=== PATIENT | female | born 1945 | race Caucasian/White ===

== ENCOUNTER 2019-06-26 14:46 | Emergency (ER) | payer OTHER, SELFPAY ==
[2019-06-26] VITALS (9 sets, daily range): BP systolic 142–198; BP diastolic 90–122; PULSE 66–98; RESP 18–20; TEMP 36.5–36.7; O2SAT 20–100
--- NOTE | ~2019-06-26 | XR_ITS ---
EXAMINATION: XR wrist RT 2V EXAM DATE: 06/26/2019 16:40 INDICATION: Status post reduction. TECHNIQUE: Right wrist frontal and lateral projections. Comparison is made to prior examination from 06/26/2019. FINDINGS: Acute comminuted right distal radial metaphyseal fracture into joints with reduction of th e posterior angulation and displacement. The other findings including acute ulnar styloid avulsion ar e poorly visualized through the cast which has been applied. Advanced first carpometacarpal joint ost eoarthritis. IMPRESSION: Status post casting, reduction acute right radial distal metaphyseal intra-articular fra cture. Ulnar styloid fracture. Reviewed, dictated and finalized at location G. IMPRESSION: Status post casting, reduction acute right radial distal metaphyse al intra-articular fracture. Ulnar styloid fracture.
--- NOTE | ~2019-06-26 | XR_ITS ---
EXAMINATION: XR elbow RT 2V INDICATION: Right elbow pain TECHNIQUE: Two views of the right elbow were obtained. COMPARISON: None available FINDINGS: There is no fracture, dislocation, or subluxation. The bones, soft tissues, and joint space s are normal. IMPRESSION: 1. No acute osseous abnormality. Reviewed, dictated and finalized at location A.
--- NOTE | ~2019-06-26 | XR_ITS ---
EXAMINATION: XR wrist RT 2V INDICATION: Right wrist pain, initial encounter TECHNIQUE: Two views of the right wrist are obtained. COMPARISON: 04/17/2019 FINDINGS: There is an acute, traumatic, or intra-articular fracture of the distal radius. There are 3 0 degrees of dorsal relation at the fracture site. An ulnar styloid avulsion is noted. Soft tissue sw elling surrounds the fractures. The trapezium appears to be absent. IMPRESSION: 1. Comminuted intra-articular fracture of the distal radius with dorsal attenuation. 2. Ulnar styloid avulsion. Reviewed, dictated and finalized at location A. IMPRESSION: 1. Comminuted intra-articular fracture of the distal radius with dorsal attenua tion. 2. Ulnar styloid avulsion.
--- NOTE | 2019-06-26 14:54 | ED.GENADULT ---
HPI - General Adult General Chief complaint: Extremity Injury, Upper Stated complaint: R ARM INJURY Time Seen by Provider: 06/26/19 14:53 History of Present Illness HPI narrative: Patient is a 73 y/o female complaining of right wrist pain after a fall that occurred half an hour ago. She states that she was walking in a park and tripped. She describes her pain as sharp and rates it as 10/10. Movement exacerbates her pain. Her pain radiates to her right elbow. She has some mild right upper back pain. She denies hitting her head or having LOC. She denies any neck pain. Related Data Home Medications Medication Instructions Recorded Confirmed calcium carbonate 500 mg calcium 500 mg PO DAILY 02/12/19 (1,250 mg) chewable tablet diclofenac sodium 1 % topical gel 2 gm TOPICAL QID 02/12/19 naproxen sodium 220 mg capsule 220 mg PO Q12H 02/12/19 tramadol 50 mg tablet 50 mg PO Q6H PRN 02/12/19 esomeprazole magnesium 20 mg 20 mg PO DAILY 04/17/19 04/17/19 capsule,delayed release naproxen sodium 220 mg tablet 220 mg PO BID PRN 04/17/19 04/17/19 Allergies Allergy/AdvReac Type Severity Reaction Status Date / Time adhesive tape Allergy Severe BLISTERS Verified 04/17/19 09:42 Penicillins Allergy Mild rash Verified 04/17/19 09:42 Review of Systems Constitutional: Constitutional: Denies chills, Denies fever(s), Denies headache(s) and Denies weakness Eyes: Eyes: Denies blurry vision ENT: Denies headache(s) and Denies neck pain Cardiovascular: Cardiovascular: Denies chest pain and Denies dyspnea Respiratory: Respiratory: Denies cough and Denies dyspnea Gastrointestinal: Gastrointestinal: Denies abdominal pain, Denies diarrhea, Denies nausea and Denies vomiting Genitourinary: Genitourinary: Denies hematuria and Denies dysuria Musculoskeletal: Musculoskeletal: Reports back pain, Reports arthralgias (right wrist pain) and Denies neck pain Neurologic: Denies headache(s) and Denies weakness PMFSH Past Medical History Medical History Osteoporosis Surgical History Surgical History History of hysterectomy 2000 History of knee replacement Left 2014- Dr. Parkinson History of knee surgery 2016- Dr. Parkinson History of thumb surgery Left 2006- Right 2007- History of tonsillectomy 1972 Family History Family History Mother Family history of diabetes mellitus in first degree relative Diabetes mellitus Hypertension Father Hypertension Sibling Family history of malignant neoplasm of brain Other Cerebrovascular accident Family history of malignant neoplasm Social History Social History Smoking status: Never smoker Second hand tobacco smoke exposure: No Alcohol intake: never Additional living arrangements comments: Exam Const: General: no acute distress and well developed Orientation/consciousness: oriented to person, oriented to place, oriented to time and patient oriented x3 HENMT: Head: normocephalic Ears: external ears normal General nose exam: Normal external nose present Eyes: General: appearance normal, both eyes and all related structures Conjunctivae: conjunctivae normal Neck: Neck: normal visual inspection and full ROM Chest: Chest palpation & inspection: normal inspection of the chest and no tenderness Resp: Effort & Inspection: normal respiratory effort Auscultation: clear to auscultation bilaterally Cardio: Rate: regular rate Rhythm: regular rhythm GI: GI Palp: No abdominal tenderness and Yes Soft to palpation Skin: General skin exam: normal color and turgor normal Neuro: General: oriented to person, oriented to place, oriented to time and patient oriented x3 Cognition (Neuro): normal cognition Extrem: General: normal to inspection, full ROM
[2019-06-26] MEDS: MORPHINE SULFATE 4 MG/ML INJ (15:07)
[2019-06-26] MEDS: PROPOFOL IV EMULSION 200 MG/20 ML VIAL (16:15)
[2019-06-26] MEDS: SODIUM CHLORIDE 0.9% IV 500 ML 999 ML (16:25)
[2019-06-26 16:41] LABS: Basophils Absolute Auto 0.1 K/mm3 (0.0-0.1); Basophils Percent Auto 0.6 % (0.2-1.2); Eosinophils Absolute Auto 0.4 K/mm3 (0-0.3); Eosinophils Percent Auto 5.1 % (0-4.4); Hematocrit 42.6 % (37.0-47.0); Hemoglobin 13.2 g/dL (12.0-15.0); Immature Granulocyte Absolute 0.02 K/mm3 (0.00-0.031); Immature Granulocyte Percent A 0.2 % (0-0.5); Lymphocytes Absolute Auto 2.64 K/mm3 (0.9-3.2); Lymphocytes Percent Auto 32.3 % (18.3-44.2); Mean Corpuscular Hemoglobin 28.6 pg (26-34); Mean Corpuscular Volume 92.4 fl (80-100); Mean Platelet Volume 10.6 fl (7.4-10.4); Monocytes Absolute Auto 0.6 K/mm3 (0.1-0.6); Monocytes Percent Auto 6.8 % (2.6-8.5); Neutrophils Absolute Auto 4.5 K/mm3 (1.3-6.7); Platelet Count Result 352 k/mm3 (150-375); Red Blood Count 4.61 M/mm3 (4.2-5.4); Red Cell Distribution Width 13.3 % (11.5-14.5); White Blood Count 8.2 K/mm3 (4.5-10.0)
[2019-06-26] MEDS: hydroCHLOROthiazide 25 MG TABLET PO (16:45)
[2019-06-26] MEDS: lisinopriL 20 MG TABLET PO (16:45)
[2019-06-26 16:51] LABS: Blood Urea Nitrogen 31 mg/dL (7-17); Calcium 9.3 mg/dL (8.4-10.2); Carbon Dioxide 29 mmol/L (22-30); Chloride 101 mmol/L (98-107); Estimated CRCL calculation 59 ml/min; Estimated Glomerular Filt Rate > 60; Glucose 95 mg/dL (65-105); Sodium 139 mmol/L (137-145)
[2019-06-26] MEDS: AMLODIPINE BESYLATE 5 MG TABLET 10 MG PO (17:25)
== END 2019-06-26 17:48 | disposition home or self-care (01) ==
PROVIDERS: Emergency Provider Emergency Medicine; PCP Family Medicine
DX: S52.571A Other intraarticular fracture of lower end of right radius, initial encounter for closed fracture (principal); S52.611A Displaced fracture of right ulna styloid process, initial encounter for closed fracture; M81.0 Age-related osteoporosis without current pathological fracture; Z96.652 Presence of left artificial knee joint; W01.0XXA Fall on same level from slipping, tripping and stumbling without subsequent striking against object, initial encounter
CPT/HCPCS: 25605; 36415; 73070; 73100; 80048; 85025; 96374; 99285; A4565; A9270; J2270; J2704; J7040

== ENCOUNTER 2019-07-06 00:25 | Day surgery (SDC) | payer OTHER, SELFPAY ==
[2019-07-04 10:55] VITALS: BMI 33.5
--- NOTE | 2019-07-05 16:33 | P.PNAN_ITS ---
Anes - Eval Pre Procedure Procedure: Operation Date: 07/06/19 07:30 Proposed Procedures p Open Reduction Internal Fixation Right Distal Radius - Luther Parkinson MD Date/Time: 07/05/19 16:33 Pre Op Diagnosis: Right Distal Radius Fracture Patient Data Age: 73 Gender: F Height: 5 ft 4 in Weight: 88.45 kg Allergies Allergy/AdvReac Type Severity Reaction Status Date / Time adhesive tape Allergy Severe BLISTERS Verified 07/04/19 10:59 Penicillins Allergy Mild Rash Verified 07/04/19 10:59 Home Medications Medication Instructions Recorded Confirmed Type calcium carbonate 500 mg calcium 500 mg PO DAILY 02/12/19 07/04/19 History (1,250 mg) chewable tablet diclofenac sodium 1 % topical gel 2 gm TOPICAL QID 02/12/19 07/04/19 History tramadol 50 mg tablet 50 mg PO Q6H PRN 02/12/19 07/04/19 History esomeprazole magnesium 20 mg 20 mg PO DAILY 04/17/19 07/04/19 History capsule,delayed release naproxen sodium 220 mg tablet 220 mg PO BID PRN 04/17/19 07/04/19 History hydrocodone-acetaminophen [[place]] 1 tablet PO Q6H PRN #15 tablet 06/26/19 07/04/19 Rx lisinopril-hydrochlorothiazide 1 tablet PO DAILY #30 tablet 06/26/19 07/04/19 Rx [Zestoretic] Patient hx anesthesia problems: none Family hx anesthesia problems: none PMFSH Past Medical History Medical History (Updated 07/05/19 @ 16:34 by Dave Haddad CRNA) Arthritis of hand, right BMI 32.0-32.9,adult Diverticulitis Fracture of right distal radius H/O: HTN (hypertension) Osteoporosis Radius and ulna distal fracture Surgical History Surgical History (Updated 07/05/19 @ 16:34 by Dave Haddad CRNA) History of appendectomy History of hysterectomy 1999 History of knee replacement Left 2013- Dr. Parkinson History of knee surgery 2016- Dr. Parkinson History of thumb surgery [facility] arthroplasties Left 2006- Right 2007- History of tonsillectomy 1972 Social History Social History Smoking status: Never smoker Second hand tobacco smoke exposure: No Alcohol intake: never Additional living arrangements comments: Exam Day of Procedure 07/05/19 16:33
[2019-07-06] VITALS (9 sets, daily range): BP systolic 121–151; BP diastolic 54–80; PULSE 63–80; RESP 12–20; TEMP 36.1–36.4; O2SAT 91–100
--- NOTE | ~2019-07-06 | XR_ITS ---
XR surgery orthopedic 07/06/2019 08:48 Indication: Intraoperative fixation of right radial fracture Procedure: 2 fluoroscopic images of the right wrist. 26 seconds of fluoroscopy. Comparison: 07/03/2019 Findings: There is a side plate and screws transfixing comminuted distal radial fracture which is in near-anatomic alignment post reduction. There is an ulnar styloid fracture. There appears to be surgi brenden absence of the trapezium. Impression: 1: Near-anatomic alignment of comminuted distal radial fracture status post intraoperative fixation w ith sideplate and screws. 2: Ulnar styloid avulsion fracture. Reviewed, dictated and finalized at location A. Impression: 1: Near-anatomic alignment of comminuted distal radial fracture status post int raoperative fixation with sideplate and screws. 2: Ulnar styloid avulsion fracture.
[2019-07-06] MEDS: LACTATED RINGERS 1,000 ML 30 ML IV CONT ×2 (06:25→08:58)
--- NOTE | 2019-07-06 06:39 | ECG_ITS ---
Measurements Intervals [place] Rate: 66 P: 3 OK: 210 QRS: -18 QRSD: 88 T: -2 QT: 402 QTc: 423 Interpretive Statements SINUS RHYTHM WITH FIRST DEGREE AV BLOCK VOLTAGE CRITERIA FOR LVH BORDERLINE T WAVE ABNORMALITY- INFERIOR LEADS BASELINE ARTIFACT- I, II, III, AVR, AVL, AVF, V1-V6 ABNORMAL ECG Electronically Signed On 07-06-2019 7:15:50 CDT by Tim Astorga D.O.
--- NOTE | 2019-07-06 06:58 | WPDANESEPPF ---
Anes - Initial Pre Proc Eval Procedure: Operation Date: 07/06/19 07:30 Proposed Procedures p Open Reduction Internal Fixation Right Distal Radius - Luther Parkinson MD Date/Time: 07/06/19 06:58 Surgeon: Luther Parkinson MD Pre Op Diagnosis: Right Distal Radius Fracture Patient Data Age: 73 Gender: F Height: 1.63 m Weight: 88.25 kg Last Vital Signs Temp 36.4 C 07/06/19 06:01 Pulse 80 07/06/19 06:01 Resp 20 07/06/19 06:01 BP 141/80 H 07/06/19 06:01 Pulse Ox 98 07/06/19 06:01 Allergies Allergy/AdvReac Type Severity Reaction Status Date / Time adhesive tape Allergy Severe BLISTERS Verified 07/06/19 06:13 Penicillins Allergy Severe Hives Verified 07/06/19 06:13 Home Medications Medication Instructions Recorded Confirmed Type calcium carbonate 500 mg calcium 500 mg PO DAILY 02/12/19 07/06/19 History (1,250 mg) chewable tablet diclofenac sodium 1 % topical gel 2 gm TOPICAL QID 02/12/19 07/06/19 History tramadol 50 mg tablet 50 mg PO Q6H PRN 02/12/19 07/06/19 History esomeprazole magnesium 20 mg 20 mg PO DAILY 04/17/19 07/06/19 History capsule,delayed release naproxen sodium 220 mg tablet 220 mg PO BID PRN 04/17/19 07/06/19 History hydrocodone-acetaminophen [[place]] 1 tablet PO Q6H PRN #15 tablet 06/26/19 07/06/19 Rx lisinopril-hydrochlorothiazide 1 tablet PO DAILY #30 tablet 06/26/19 07/06/19 Rx [Zestoretic] Patient hx anesthesia problems: none Family hx anesthesia problems: none PMFSH Past Medical History Medical History (Updated 07/05/19 @ 16:34 by Dave Haddad CRNA) Arthritis of hand, right BMI 32.0-32.9,adult Diverticulitis Fracture of right distal radius H/O: HTN (hypertension) Osteoporosis Radius and ulna distal fracture Surgical History Surgical History (Updated 07/05/19 @ 16:34 by Dave Haddad CRNA) History of appendectomy History of hysterectomy 2000 History of knee replacement Left 2013- Dr. Parkinson History of knee surgery 2016- Dr. Parkinson History of thumb surgery [facility] arthroplasties Left 2006- Right 2007- History of tonsillectomy 1972 Social History Social History Smoking status: Never smoker Second hand tobacco smoke exposure: No Alcohol intake: never Additional living arrangements comments: Anes - Eval Final PreProcedure Day of Procedure 07/06/19 06:58 Patient weight: obese Heart: regular rate and rhythm Lungs: clear to auscultation and normal air movement Airway: Mallampati scale class II Neurological: alert and oriented Last oral intake: >/= 8 hours ASA classification: III Emergent: no Anesthetic plan: proceed Anesthesia type and monitoring: general LMA Informed Consent: The patient's anesthetic plan and its attendant risks and benefits were discussed with the patient/family/POA. Questions were solicited and answers provided to the satisfaction of the patient/family/POA.
[2019-07-06] MEDS: CLINDAMYCIN 900 MG/NS 50 ML 900 MG/50 ML PIGGYBACK 50 MG IVPB (07:25)
[2019-07-06] MEDS: BUPIVACAINE/EPINEPHRINE 0.25% 50 ML VIAL 10 ML INFILTRATE (07:53)
[2019-07-06] MEDS: ceFAZolin SODIUM 1 GM VIAL IV PUSH (08:30)
[2019-07-06] MEDS: ONDANSETRON INJ 4 MG/2 ML VIAL IV PUSH (09:10)
--- NOTE | 2019-07-06 09:19 | SUR.PHASEI ---
0915 DR EDEN PERFORMING NERVE BLOCK- SEE ANESTHESIA NOTES. 0919 NERVE BLOCK COMPLETED.
--- NOTE | 2019-07-06 09:22 | PM.PROC ---
Procedure Note - Detailed Date of procedure: 07/06/19 Pre-op diagnosis: Right Distal Radius Fracture Post-op diagnosis: same Procedure performed: ORIF right distal radius fracture Description of procedure: The patient was identified and the proper side identified. She was taken back to the operating room, transferred to the or table positioning supine taking care to pad her torso and extremities. After general anesthetic induction and intubation, a nonsterile tourniquet was placed high on the right arm which was prepped and draped in the usual sterile fashion. The extremity was exsanguinated and tourniquet inflated to 250 mmHg remaining up for approximately 62 minutes. A volar longitudinal incision was made along the FCR tendon distally incorporating a portion of her prior distal forearm wrist incision. The subcutaneous tissue was sharply dissected protecting neurovascular structures. The FCR tendon was released from its sheath and retracted ulnarly. This allowed for the deep fascia of the forearm to be divided longitudinally in line with the incision. Care was taken to protect the volar compartment structures as well as the radial nerve and radial vascular structures. The pronator quadratus was elevated off of the distal radius allowing for inspection of the fracture site. The fracture fragments were disimpacted and able to be realigned virtually anatomically with fluoroscopic assistance. They were secured in this position with a right, wide, long plate from the DVR set. The plate was applied with fluoroscopic visualization to avoid penetration of the joint and to ensure optimal hardware placement. Once the plate was secure the overall construct was assessed fluoroscopically on the AP and lateral views. The virtually anatomic reduction was held very nicely. The construct was stable. The wound was irrigated with a copious amount of sterile antibiotic solution. Skin edges were reapproximated with 2-0 strata fix and tissue adhesive. Sterile dressing was applied. Tourniquet was released. A well-padded short-arm volar wrist splint was fashioned. The procedure was well tolerated. There were no known intraoperative complications. Estimated blood loss was negligible. In the PACU, the anesthesia team performed a right upper extremity block. Surgeon: Luther Parkinson MD [employer] Supervisor: Guillaume Colunga Estimated blood loss (mL): 10 Tourniquet time (min): 62 Drains: No Packing: No Pathology: none sent Complications: No immediate complications Condition: stable Disposition: PACU
--- NOTE | 2019-07-06 09:26 | WPDANESPNB ---
Anes - Peripheral Nerve Block Date/Time: 07/06/19 09:26 I have discussed with the patient/family/POA the placement of a peripheral nerve block for post-operative pain management, including associated risks, benefits, complications, and side effects. Alternative methods of post-operative analgesia were detailed. Questions were solicited and answers provided to the satisfaction of the patient/family/POA. Time-Out: A pre-procedural Time-Out was completed immediately before starting the procedure and confirmed: Patient Identification, Site, Procedure, Patient Position and the Availability of Requisite Equipment. Clinical Indications: Acute post-operative pain management requested by the operative surgeon. Nerve Block Insertion Note Anes-nerve block: supraclavicular right Patient position: supine Skin prep: chlorhexidine Needle: 22 gauge, stimulating, insulated echogenic needle. Needle length: 80 mm Technique: ultrasound (in plane) Injectate: bupivacaine 0.5% with epi 5 mcg/ml (20cc) Observations: tolerated well Complications: none Procedure start time:: 920 Procedure end time:: 92
== END 2019-07-06 10:55 | disposition home or self-care (01) ==
PROVIDERS: PCP Family Medicine; Visit Provider Orthopaedic Surgery
PROC: (CPT 25575; principal; 2019-07-06 07:30)
DX: S52.551A Other extraarticular fracture of lower end of right radius, initial encounter for closed fracture (principal); M81.0 Age-related osteoporosis without current pathological fracture; W18.39XA Other fall on same level, initial encounter; G89.18 Other acute postprocedural pain; M19.041 Primary osteoarthritis, right hand; I10 Essential (primary) hypertension; E66.9 Obesity, unspecified; Z68.33 Body mass index [BMI] 33.0-33.9, adult
CPT/HCPCS: 25607; 64415; 93005; C1713; J0690; J1100; J2405; J2704; J3010; J7120

== ENCOUNTER 2019-09-25 08:00 | Outpatient (RCR) | payer OTHER, SELFPAY ==
--- NOTE | 2019-09-04 15:14 | OTOPEVAL ---
OCCUPATIONAL THERAPY EVALUATION 09/04/2019 Thank you for referring Katherine Tian to [facility]. Skilled OT indicated 2x/week for 5 weeks for deficits described below. Please review, sign, date and return this plan of care SRINIVASA. I agree with and certify that the following plan of care is medically necessary. Referring Physician Date Referring Provider: Luther Parkinson MD *OT Outpatient Evaluation Therapy Assessment Status Assessment Status Assessment Status Evaluation Outpatient Past Medical History Neurological History Hx Neurological Disorders No Significant History Cardiovascular History Hx Hypertension Yes Respiratory History Hx Pneumonia Yes Gastrointestinal History Hx Appendectomy Yes Hx Diverticulitis Yes Hx Gastroesophageal Reflux Disease Yes Genitourinary History Hx Urinary Tract Infection Yes Musculoskeletal History Hx Arthritis Yes Hx Fractures Yes: RT RADIUS, FX LT FEMUR Hx Joint Replacement Yes: BILATERAL TKA Hx Orthopedic Surgery Yes: ORIF LT FEMUR Hematological History Hx Blood Transfusions Yes: W/ FEMUR SURGERY Endocrine History Hx Endocrine Disorders No Significant History HEENT History Hx Cataracts Yes Hx Tonsillectomy Yes Integumentary History Hx Shingles Yes Reproductive History Hx Hysterectomy Yes Psychosocial History Hx Psychiatric Disorders No Significant History Pain History Has Past Pain Affected Your Daily Life Yes: ARTHRITIS History of Long-Term Prescription Pain Yes: TRAMADOL OR ALEVE Medication Use (Opiates) Anesthesia History Hx Anesthesia Reactions No Significant History Evaluation Information Problem Diagnosis Distal radius and ulna fracture Onset Fall 06/26/19, ORIF 07/06/19 Subjective Information Katherine reports that she is to Query Text:As Reported By Patient/ wear a wrist immobilizer only Family when she leaves the house. She is to stop wearing the brace next week 09/09. She reports functional limitations with activities that require strength, such as, holding a blow dryer, squeezing a ketchup bottle, ringing a wash cloth, and cutting meat. Prior Level of Function Activity Level (Last 3 Months) Occupation Retired Hand Dominance Right Activity of Daily Living Ability Independent Pain Assessment Pain Scale Pain Scale Used Numeric (1 - 10) Self Report Pain Assessment Right Wrist(s) Reported Pain Level
--- NOTE | 2019-10-02 08:38 | PCOTNOTE ---
Patient called and cancelled OT tx this AM.
--- NOTE | 2019-10-09 07:56 | OTOPEVAL ---
OCCUPATIONAL THERAPY DISCHARGE NOTE 10/09/2019 Kathreine has cancelled all of her remaining visits stating that she is doing well, is independent with all of her exercises, and feels that she does not need further therapy. She was completing AROM, PROM, and strengthening with the right wrist and hand. Thank you for referring Katherine Tian to [facility]. Please review, sign, date and return this discharge note SRINIVASA. I agree with and certify that the following plan of care is medically necessary. Referring Physician Date Referring Provider: Luther Parkinson MD
--- NOTE | 2020-04-01 12:52 | PCOTNOTE ---
Forgot to charge paraffin bath procedure on 09/06/2019, billing office is notified
--- NOTE | 2020-04-01 15:38 | PCOTNOTE ---
OT documentation from 09/11/19: Forgot to charge paraffin bath procedure, billing office is notified
== END 2019-10-09 12:19 | disposition home or self-care (01) ==
LOC: ANHOT 08:00
PROVIDERS: Visit Provider Orthopaedic Surgery
DX: S52.509D Unspecified fracture of the lower end of unspecified radius, subsequent encounter for closed fracture with routine healing (principal); S52.609D Unspecified fracture of lower end of unspecified ulna, subsequent encounter for closed fracture with routine healing
CPT/HCPCS: 97018; 97110; 97140; 97165

== ENCOUNTER → 2019-10-12 09:16 | Outpatient (CLI) | payer OTHER, SELFPAY ==
--- NOTE | ~2019-10-12 | DEXA_ITS ---
Bone Density Report Name: Katherine Tian Age: 73 Sex: Female Ethnicity: White Date of : 1945 Indication: osteopenia; parental hip fracture; height loss; prior fracture; hysterectomy; Referring Provider: Sabrina Duran Study: Bone densitometry was performed. Exam Date: October 12, 2019 Accession number: [id number] Bone Density: Region BMD T-score Z-score Classification AP Spine (L2, L3, L4) 1.213 1.2 3.6 Normal Femoral Neck (Left) 0.612 -2.1 -0.2 Osteopenia Total Hip (Left) 0.725 -1.8 -0.1 Osteopenia Femoral Neck (Right) 0.692 -1.4 0.6 Osteopenia Total Hip (Right) 0.774 -1.4 0.3 Osteopenia Total Hip Mean 0.750 -1.6 0.1 Osteopenia World Health Organization criteria for BMD impression classify patients as: Normal (T-score at or above -1.0), Osteopenia (T-score between -1.0 and -2.5), or Osteoporosis (T-score at or below -2.5). 10-year Fracture Risk(1): Major Osteoporotic Fracture 30% Hip Fracture 13% Reported Risk Factors: [place] (), Neck BMD=0.612, BMI=34.4, previous fracture, parental fracture (1) FRAX(R) Version 3.08. Fracture probability calculated for an untreated patient. Fracture probability may be lower if the patient has received treatment. Previous Exams: Region Exam Age BMD T-score BMD Change BMD Change Date g/cm2 vs Baseline vs Previous AP Spine(L2, L3, L4) 10/12/2019 73 1.213 1.2 0.094* 0.065* 08/28/2016 70 1.148 0.6 0.029* 0.029* 07/27/2014 68 1.119 0.4 Total Hip(Left) 10/12/2019 73 0.725 -1.8 0.093* 0.041* 08/28/2016 70 0.684 -2.1 0.052* 0.052* 07/27/2014 68 0.632 -2.5 Total Hip(Right) 10/12/2019 73 0.774 -1.4 0.026 0.044* 08/28/2016 70 0.730 -1.7 -0.019 -0.019 07/27/2014 68 0.748 -1.6 *Denotes significance at 95% confidence level, LSC for AP Spine = 0.022 g/cm2, LSC for Total Hip = 0.027 g/cm2 Clinical Information Provided by Patient: Has had a low trauma fracture Parent has had a hip fracture Has used the following medications: Calcium Has the following medical conditions: Hysterectomy Patient maximum height was 64 Menopause Age: 52 Does not regularly consume dairy products Drinks caffeinated beverages Onset of menses at age 14 Number of children 3 Impression: The patient has low bone mass, based on the Left Femoral Neck T-score. The patient mcmanus
== END ==
PROVIDERS: Visit Provider Nurse Practitioner
DX: Z78.0 Asymptomatic menopausal state (principal); M85.852 Other specified disorders of bone density and structure, left thigh; M85.851 Other specified disorders of bone density and structure, right thigh
CPT/HCPCS: 77080

== ENCOUNTER 2019-12-12 11:04 | Outpatient (CLI) | payer OTHER, SELFPAY ==
--- NOTE | ~2019-12-12 | US_ITS ---
EXAMINATION: US abdomen limited EXAM DATE: 12/12/2019 12:18 INDICATION: Cholelithiasis. Follow-up. TECHNIQUE: Multiple grayscale and Doppler images of the abdomen right upper quadrant were obtained (b y a technologist who performed the scan) and subsequently reviewed. Comparison is made to prior exami nation from 12/12/2017. FINDINGS: The pancreatic head and body are normal in appearance. The pancreatic tail is not visualized. The l iver has normal echogenicity and contour. There are no focal liver lesions identified. There is no evidence of intrahepatic biliary duct dilation. Portal venous flow was seen in the hepatopedal, nor mal direction and has normal Doppler waveform. No right-sided hydronephrosis. Common bile duct measures 7 mm, which is normal for age. The gallbladder wall is normal in thickness, with expected amount of distention. No sonographic evidence of pericholecystic fluid. Several smal l gallbladder polyps again noted up to 6 mm unchanged. Technologist performing exam reports patient did not demonstrate sonographic [place]'s sign. Please note that this sign is less reliable in patien ts who have received pain medication. IMPRESSION: 1. Unchanged small gallbladder polyps. Reviewed, dictated and finalized at location B.
== END 2019-12-12 11:05 ==
PROVIDERS: PCP Family Medicine; Visit Provider Surgery
DX: K82.4 Cholesterolosis of gallbladder (principal)
CPT/HCPCS: 76705

== ENCOUNTER 2019-12-15 13:43 | Emergency (ER) | payer OTHER, SELFPAY ==
--- NOTE | ~2019-12-15 | XR_ITS ---
XR knee RT min 4V 12/15/2019 14:07 Indication: Right knee pain Procedure: 4 views right knee Comparison: 07/18/2018 Findings: Right total knee arthroplasty changes. No fracture or traumatic malalignment. Prosthesis we ll seated. No significant joint effusion. No focal soft tissue abnormality. Impression: 1: No acute fracture. Reviewed, dictated and finalized at location A. Impression: 1: No acute fracture.
[2019-12-15 13:51] VITALS: BP 141/75; PULSE 86; RESP 16; TEMP 36.8; O2SAT 99
--- NOTE | 2019-12-15 14:11 | ED.GENADULT ---
HPI - General Adult General Chief complaint: Extremity Injury, Lower Stated complaint: R KNEE INJURY Source: patient Mode of arrival: ambulatory Limitations: no limitations History of Present Illness HPI narrative: Patient presents for evaluation of right knee pain. She indicates 2 days ago she opened a storm door. In the process of doing so the door hit her right knee. Since that time she has had pain in the anterior aspect of the right knee. She states the pain is fairly constant, rated 8 on a scale 1-10, described as sharp. No radicular component to the pain. No paresthesias. She tried taking Tylenol arthritis with some improvement in her symptoms thereafter. She has a history of bilateral knee replacements per Dr. Parkinson. No additional complaints or concerns. Related Data Home Medications Medication Instructions Recorded Confirmed calcium carbonate 500 mg calcium 500 mg PO DAILY 02/12/19 12/12/19 (1,250 mg) chewable tablet Allergies Allergy/AdvReac Type Severity Reaction Status Date / Time adhesive tape Allergy Severe BLISTERS Verified 12/12/19 14:07 Penicillins Allergy Severe Hives Verified 12/12/19 14:07 Review of Systems Review of Systems: Narrative: CONSTITUTIONAL: Denies fever, chills, or sweats. EYES: Denies visual changes, redness, or discharge. ENT: Denies rhinorrhea, congestion, sore throat, or otalgia. CARDIOVASCULAR: Denies chest pain, palpitations, or edema. RESPIRATORY: Denies cough or dyspnea. GASTROINTESTINAL: Denies abdominal pain, nausea, vomiting, or diarrhea. GENITOURINARY: Denies dysuria or hematuria. SKIN: Denies rash or itching. MUSCULOSKELETAL: Denies back pain or myalgias. Reports right knee pain. NEUROLOGIC: Denies headache, numbness, dizziness, or weakness. PSYCHIATRIC: Denies anxiety or depression. [facility] Past Medical History Medical History Arthritis of hand, right BMI 34.0-34.9,adult Chronic GERD Diverticulitis Fracture of right distal radius H/O: HTN (hypertension) Osteoporosis Surgical History Surgical History History of appendectomy History of hysterectomy 1999 History of knee replacement Left 2013- Dr. Parkinson History of knee surgery 2016- Dr. Parkinson History of thumb surgery [facility] arthroplasties Left 2006- Right 2007- History of tonsillectomy 1972 Radius and ulna distal fracture ORIF July 2019 Family History Family History Mother Family history of diabetes mellitus in first degree relative Diabetes mellitus Hypertension Hepatitis C Father Hypertension Sibling Family history of malignant neoplasm of brain Other Cerebrovascular accident Family history of malignant neoplasm Social History Social History Smoking status: Never smoker Second hand tobacco smoke exposure: No Alcohol intake: never Additional living arrangements comments: Exam Narrative: Exam Narrative: GENERAL: Well-appearing, well-nourished, and in no acute distress. HEAD: Normocephalic, atraumatic. EYES: PERRLA and EOMI. ENT: Nares clear, no rhinorrhea or epistaxis. Mucous membranes moist. Oropharynx without tonsillar hypertrophy exudate or other lesions. Bilateral TMs pearly kate nonbulging NECK: Supple. No adenopathy or masses. No carotid bruits or JVD CHEST: Clear to auscultation. No respiratory distress. No wheezes rales or rhonchi HEART: Regular rate and rhythm. No murmur heard. Normal peripheral pulses. ABDOMEN: Soft, nontender, nondistended, normal active bowel sounds. EXTREMITIES: Normal range of motion. No edema. Positive crepitus in the left knee without associated tenderness. There appear to be chronic inflammatory changes noted in the left knee. Anterior aspect of right knee is tender to
== END 2019-12-15 14:33 | disposition home or self-care (01) ==
PROVIDERS: Emergency Provider Nurse Practitioner; PCP Family Medicine
DX: S80.01XA Contusion of right knee, initial encounter (principal); W22.8XXA Striking against or struck by other objects, initial encounter; I10 Essential (primary) hypertension; Z96.652 Presence of left artificial knee joint; M81.0 Age-related osteoporosis without current pathological fracture; K21.9 Gastro-esophageal reflux disease without esophagitis
CPT/HCPCS: 73564; 99213; G0463

== ENCOUNTER 2020-12-18 08:35 | Outpatient (CLI) | payer OTHER, SELFPAY ==
--- NOTE | ~2020-12-18 | US_ITS ---
EXAMINATION: US abdomen limited EXAM DATE: 12/18/2020 08:55 INDICATION: K82.4 - Cholesterolosis of gallbladder. TECHNIQUE: Multiple grayscale and Doppler images of the abdomen right upper quadrant were obtained (b y a technologist who performed the scan) and subsequently reviewed. Comparison is made to prior exami nation from 12/12/2019. FINDINGS: The pancreatic head and body are normal in appearance. The pancreatic tail is not visualized. The l iver has normal echogenicity and contour. There are no focal liver lesions identified. There is no evidence of intrahepatic biliary duct dilation. Portal venous flow was seen in the hepatopedal, nor mal direction and has normal Doppler waveform. No right-sided hydronephrosis. Common bile duct measures 7 mm, which is normal for age. Several small gallbladder polyps up to abou t 5 mm in size. These are unchanged and not likely clinically significant. No cholelithiasis, pericho lecystic fluid or sonographic [place] sign demonstrated. IMPRESSION: Unchanged small gallbladder polyps, benign. Reviewed, dictated and finalized at location A.
== END 2020-12-18 08:36 ==
PROVIDERS: PCP Family Medicine; Visit Provider Surgery
DX: K82.4 Cholesterolosis of gallbladder (principal)
CPT/HCPCS: 76705

== ENCOUNTER 2021-03-14 12:33 | Outpatient (CLI) | payer OTHER, SELFPAY ==
--- NOTE | ~2021-03-14 | CT_ITS ---
EXAMINATION: CT abdomen pelvis wo/w con DATE: 03/14/2021 13:50 INDICATION: Gross hematuria. TECHNIQUE: Computed tomography (CT) of the abdomen and pelvis was performed without and with intraven ous contrast using a total of 130 mL Omnipaque-350 intravenous contrast with a double-bolus technique for simultaneous opacification of the renal parenchyma and renal collecting system. Automated exposu re control and iterative reconstruction technique were employed. The dose-length product was 1769.34 mGy-cm. COMPARISON: None FINDINGS: The visualized portions of the lung bases demonstrate mild atelectasis and scarring. Calcified left l fabricio nodules and calcified left hilar lymph nodes are consistent with old granulomatous disease. No pl eural effusion. The heart size is normal. There are coronary artery calcifications. No pericardial ef fusion. There are cysts in the liver measuring up to 10 mm. Calcifications in the spleen are consiste nt with old granulomatous disease. The gallbladder, pancreas, and adrenal glands are normal. There is no urolithiasis. There is cortical thinning of the kidneys. There are cysts in the kidneys measuring up to 12 mm on the left. The ureters are well opacified and are normal. Pelvic floor relaxation is n oted. There is no bladder mass. There is diverticulosis of the colon and terminal ileum without evide nce of diverticulitis. The appendix is not visualized. There are no pathologically enlarged lymph nod es. There is no free intraperitoneal fluid. There is severe thoracic and lumbar spondylosis. IMPRESSION: 1. No etiology for hematuria. 2. Pelvic floor relaxation. Reviewed, dictated and finalized at location B. [place] [employer]
--- NOTE | ~2021-03-14 | XR_ITS ---
XR abdomen/kub 1V 03/14/2021 12:51 INDICATION: Gross hematuria TECHNIQUE: KUB COMPARISON: None FINDINGS: Bowel gas pattern is normal. There is no evidence of free air, mass, organomegaly, ascites or obstruction. No abnormal calculi are seen. There are pelvic phleboliths. There is moderate-sever e lumbar spondylosis. There is osteoarthritis of the hips. The bones appear intact. IMPRESSION: 1: No acute abdominal abnormality identified. Reviewed, dictated and finalized at location A. SEOLOGIST
[2021-03-14 13:22] LABS: Estimated Glomerular Filt Rate 49
== END 2021-03-14 12:34 | disposition home or self-care (01) ==
LOC: ANHIMG 12:37
PROVIDERS: PCP Family Medicine; Visit Provider Nurse Practitioner Adult Health
DX: R31.0 Gross hematuria (principal)
CPT/HCPCS: 74018; 74178; Q9967

== ENCOUNTER 2021-06-09 00:08 | Day surgery (SDC) | payer OTHER, SELFPAY ==
[2021-05-28 13:38] VITALS: BMI 31.4
[2021-06-09 09:51] VITALS: BP 131/67; PULSE 74; RESP 16; TEMP 35.7; O2SAT 92
[2021-06-09] MEDS: LACTATED RINGERS 1,000 ML 150 ML IV CONT (09:56)
--- NOTE | 2021-06-09 10:48 | WPDGICN ---
Assessment and Plan Assessment and plan (1) Positive colorectal cancer screening using Cologuard test: Code(s): R19.5 - Other fecal abnormalities Status: Acute Assessment and Plan: Patient recently found to have positive Cologuard test. For this reason screening colonoscopy will be performed. (2) Rectal bleeding: Code(s): K62.5 - Hemorrhage of anus and rectum Status: Acute Assessment and Plan: Patient reports bright red blood per rectum with wiping attributed to hemorrhoids. Plan is for fiber supplementation. This will be evaluated at time of colonoscopy. (3) Constipation: Code(s): K59.00 - Constipation, unspecified Status: Acute Assessment and Plan: Patient complains of constipation. Currently improving on MiraLax on a daily basis would continue this as needed along with a high-fiber diet. (4) Family history of colonic polyps: Code(s): Z83.71 - Family history of colonic polyps Status: Acute Assessment and Plan: Patient's sister has had colon polyps. Along with some positive Cologuard test suggest benefit with screening with colonoscopy at this time. GI Consult Note Consult date/time: 06/09/21 10:48 HPI: Katherine Tian is a 75 year old female Presents for colonoscopy. Patient recently found to have positive Cologuard test. For this reason colonoscopy suggested. Patient reports intermittent bright red blood per rectum with wiping over the last 1 year. She has he had increasing constipation over the last 6 months for which she takes MiraLax now on a routine basis. Family history is significant that her sister has had colon polyps. Patient apparently had a colonoscopy many years ago that was unremarkable. Review of Systems Review of Systems: All systems reviewed & are unremarkable except as noted in HPI and below PMFSH Past Medical History Medical History Arthritis of hand, right Chronic GERD Diverticulitis Fracture of right distal radius Gallbladder polyp H/O: HTN (hypertension) Osteoporosis Surgical History Surgical History History of appendectomy History of cataract surgery History of hysterectomy 2000 History of knee replacement Left 2013- Dr. Parkinson History of knee surgery 2016- Dr. Parkinson History of thumb surgery [facility] arthroplasties Left 2006- Right 2007- History of tonsillectomy 1972 Radius and ulna distal fracture ORIF July 2019 Family History Family History Mother Family history of diabetes mellitus in first degree relative Diabetes mellitus Hypertension Hepatitis C Father Hypertension Sibling Family history of malignant neoplasm of brain Other Cerebrovascular accident Family history of malignant neoplasm Social History Social History Smoking status: Never smoker Second hand tobacco smoke exposure: No Alcohol intake: never Substance use type: does not use Living arrangements: with family Additional living arrangements comments: Spiritual care concerns: No Meds Home Medications and Allergies Home Medications Medication Instructions Recorded Confirmed Type calcium carbonate 500 mg calcium 500 mg PO DAILY 02/12/19 06/09/21 History (1,250 mg) chewable tablet diclofenac sodium 1 % topical gel See Rx Instructions .ROUTE 11/05/19 06/09/21 Rx .COMPLEX #100 gm cholecalciferol (vitamin D3) 50 50 mcg PO DAILY 02/25/20 06/09/21 History mcg (2,000 unit) capsule aspirin 81 mg tablet,delayed 81 mg PO DAILY #90 tablet 06/25/20 06/09/21 Rx release omeprazole 20 mg capsule,delayed 20 mg PO DAILY #90 cap 12/29/20 06/09/21 Rx release lisinopril 10 mg tablet 10 mg PO DAILY #90 tablet 02/16/21 06/09/21 Rx cephalexin 250 mg capsule
[2021-06-09 11:41] VITALS: BP 80/45; PULSE 71; RESP 19; O2SAT 97
[2021-06-09 11:51] VITALS: BP 100/61; PULSE 62; RESP 18; O2SAT 100
[2021-06-09 12:01] VITALS: BP 106/66; PULSE 73; RESP 20; O2SAT 100
== END 2021-06-09 12:28 | disposition home or self-care (01) ==
PROVIDERS: PCP Family Medicine; Visit Provider Internal Medicine Gastroenterology
PROC: 0DJD8ZZ Inspection of Lower Intestinal Tract, Via Natural or Artificial Opening Endoscopic (ICD-10-PCS; CPT 45378; principal; 2021-06-09 11:00)
DX: R19.5 Other fecal abnormalities (principal); K64.8 Other hemorrhoids; K57.30 Diverticulosis of large intestine without perforation or abscess without bleeding; K59.00 Constipation, unspecified; K62.5 Hemorrhage of anus and rectum; Z83.71 Family history of colonic polyps; K21.9 Gastro-esophageal reflux disease without esophagitis; K82.4 Cholesterolosis of gallbladder; I10 Essential (primary) hypertension; M19.90 Unspecified osteoarthritis, unspecified site; Z79.82 Long term (current) use of aspirin; M81.0 Age-related osteoporosis without current pathological fracture
CPT/HCPCS: 45378; J2704; J7120

== ENCOUNTER → 2021-07-01 15:14 | Outpatient (CLI) | payer OTHER, SELFPAY ==
--- NOTE | ~2021-07-01 | MM_ITS ---
EXAMINATION: MM screening [facility] BI w shashi HISTORY: Screening TECHNIQUE: Craniocaudal and mediolateral oblique 3-D tomosynthesis images were obtained and synthetic 2-D images were generated. CAD analysis was submitted and interpreted. COMPARISON: Comparison to multiple prior studies sequentially, with oldest reviewed study dated 03/2014. BREAST PARENCHYMAL COMPOSITION: There are scattered areas of fibroglandular density. FINDINGS: There is no evidence of suspicious mass, calcification, or architectural distortion to sugg est malignancy in either breast. There has been no suspicious interval change. IMPRESSION: 1. No mammographic evidence of malignancy. 2. Recommend routine screening mammography in one year. BI-RADS Category 1: Negative Reviewed, dictated and finalized at location A.
== END ==
PROVIDERS: PCP Nurse Practitioner; Visit Provider Nurse Practitioner
DX: Z12.31 Encounter for screening mammogram for malignant neoplasm of breast (principal)
CPT/HCPCS: 77063; 77067

== ENCOUNTER 2021-10-07 10:53 | Outpatient (CLI) | payer OTHER, SELFPAY ==
[2021-10-07 20:44] LABS: Alanine Aminotransferase 19 U/L (6-35); Albumin Level 4.5 g/dL (3.5-5.1); Alkaline Phosphatase 77 U/L (38-126); Anion Gap 11 mmol/L (8-16); Aspartate Amino Transferase 42 U/L (14-36); Bilirubin,Total 0.3 mg/dL (0.2-1.3); Blood Urea Nitrogen 27 mg/dL (7-17); Calcium 9.7 mg/dL (8.4-10.2); Carbon Dioxide 25 mmol/L (22-30); Chloride 104 mmol/L (98-107); Cholesterol 151 mg/dL (0-200); Estimated Glomerular Filt Rate 49; Glucose 91 mg/dL (65-110); HDL Direct 79 mg/dL; Potassium 4.3 mmol/L (3.4-5.0); Sodium 140 mmol/L (137-145); Triglycerides 75 mg/dL (<150)
[2021-10-07 20:55] LABS: LDL Cholesterol Direct 38 mg/dL
[2021-10-07 21:11] LABS: Basophils Absolute Auto 0.1 K/mm3 (0.0-0.1); Eosinophils Absolute Auto 0.3 K/mm3 (0-0.3); Eosinophils Percent Auto 4.8 % (0-4.4); Hematocrit 38.1 % (37.0-47.0); Hemoglobin 11.7 g/dL (12.0-15.0); Immature Granulocyte Absolute 0.01 K/mm3 (0.00-0.031); Immature Granulocyte Percent A 0.2 % (0-0.5); Lymphocytes Absolute Auto 2.01 K/mm3 (0.9-3.2); Mean Corpuscular HGB Conc 30.7 g/dl (32-36); Mean Corpuscular Hemoglobin 29.7 pg (26-34); Mean Corpuscular Volume 96.7 fl (80-100); Monocytes Absolute Auto 0.4 K/mm3 (0.1-0.6); Neutrophils Absolute Auto 3.5 K/mm3 (1.3-6.7); Platelet Count Result 305 k/mm3 (150-375); Red Blood Count 3.94 M/mm3 (4.2-5.4); Red Cell Distribution Width 12.6 % (11.5-14.5); White Blood Count 6.3 K/mm3 (4.5-10.0)
== END 2021-10-07 10:54 | disposition home or self-care (01) ==
LOC: ANHGOSHLAB 10:54
PROVIDERS: PCP Nurse Practitioner; Visit Provider Nurse Practitioner
DX: E78.5 Hyperlipidemia, unspecified (principal); I10 Essential (primary) hypertension
CPT/HCPCS: 36415; 80053; 80061; 85025

== ENCOUNTER 2022-05-04 09:05 | Outpatient (CLI) | payer OTHER, SELFPAY ==
[2022-05-04 10:09] LABS: Kit Draw Collected
== END 2022-05-04 09:06 | disposition home or self-care (01) ==
LOC: ANHGOSHLAB 09:07
PROVIDERS: PCP Family Medicine; Visit Provider Nurse Practitioner
DX: E55.9 Vitamin D deficiency, unspecified (principal); E78.5 Hyperlipidemia, unspecified; I10 Essential (primary) hypertension
CPT/HCPCS: 36415

== ENCOUNTER 2022-08-29 13:19 | Emergency (ER) | payer OTHER, SELFPAY ==
[2022-08-29 13:29] VITALS: BP 126/57; PULSE 80; RESP 16; TEMP 36.3; O2SAT 99
--- NOTE | 2022-08-29 13:52 | ED.FEMALEGU ---
HPI - Female Genitourinary General Chief complaint: Urogenital-Female Stated complaint: uti Time Seen by Provider: 08/29/22 13:53 Source: patient and RN notes reviewed Mode of arrival: ambulatory Limitations: no limitations History of Present Illness HPI Narrative: 76 y/o female presented for c/o burning with urination, pressure, frequency and urgency for about 3 days. Noticed blood in urine this morning. Reports history of UTIs and follows with urology. Not taking anything for symptoms. Denies flank pain, nausea, vomiting, diarrhea, fever or chills. Related Data Home Medications Medication Instructions Recorded Confirmed calcium carbonate 500 mg calcium 500 mg PO DAILY 02/12/19 08/29/22 (1,250 mg) chewable tablet (Calci-Chew) cholecalciferol (vitamin D3) 50 50 mcg PO DAILY 02/25/20 08/29/22 mcg (2,000 unit) capsule polyethylene glycol 3350 17 gram 17 g PO DAILY 06/01/21 08/29/22 oral powder packet (Miralax) ascorbic acid (vitamin C) 500 mg 500 mg PO DAILY 10/05/21 08/29/22 capsule Allergies Allergy/AdvReac Type Severity Reaction Status Date / Time adhesive tape Allergy Severe BLISTERS Verified 08/29/22 13:41 Penicillins Allergy Severe Hives Verified 08/29/22 13:41 ciprofloxacin [From Cipro] AdvReac Mild itching Verified 08/29/22 13:41 Review of Systems Review of Systems: CONSTITUTIONAL: Denies body aches, fever, chills, or sweats. CARDIOVASCULAR: Denies chest pain, palpitations, or edema. RESPIRATORY: Denies cough or dyspnea. GASTROINTESTINAL: Denies abdominal pain, nausea, vomiting, or diarrhea. GENITOURINARY: Reports dysuria, frequency, urgency, hematuria, flank pain SKIN: Denies rash, itching, or wounds. MUSCULOSKELETAL: Denies back pain or myalgia. [facility] Past Medical History Medical History Arthritis of hand, right Chronic GERD Diverticulitis Fracture of right distal radius Gallbladder polyp H/O: HTN (hypertension) Nausea and vomiting Osteoporosis Positive colorectal cancer screening using Cologuard test Surgical History Surgical History History of appendectomy (~1975) History of cataract surgery (~2020) History of hysterectomy 1999 History of knee replacement Left 2014- Dr. Parkinson History of knee surgery 2016- Dr. Parkinson History of thumb surgery [facility] arthroplasties Left 2006- Right 2007- History of tonsillectomy 1972 Radius and ulna distal fracture ORIF July 2019 Family History Family History Mother Family history of diabetes mellitus in first degree relative Diabetes mellitus Hypertension Hepatitis C Father Hypertension Sibling Family history of malignant neoplasm of brain Other Cerebrovascular accident Family history of malignant neoplasm Social History Social History Smoking status: Never smoker Second hand tobacco smoke exposure: No Alcohol intake: never Substance use: never Substance use type: does not use Lack of Food: Never True Current Housing: I Have Housing Concerned About Future Housing: No Difficulty Paying Gas/Electric Bills: No Difficulty Paying for Meds: No Currently Unemployed: No Education: High School Diploma/GED Difficulty w/ Childcare or Family Care: No Living arrangements: with family Additional living arrangements comments: Occupation/Education: retired Gender identity (if verbalized by the patient): Female Sexual Orientation (if Verbalized by the Patient): Straight or Heterosexual Spiritual care concerns: No Agree to blood products: Yes Comments At time of signature, I have reviewed and agree with nursing past medical, surgical, social and family history unless otherwise noted. Please see nursing chart for further information. Ther
== END 2022-08-29 14:07 | disposition home or self-care (01) ==
PROVIDERS: Emergency Provider Nurse Practitioner Family; PCP Family Medicine
DX: N39.0 Urinary tract infection, site not specified (principal); K21.9 Gastro-esophageal reflux disease without esophagitis; I10 Essential (primary) hypertension; M17.11 Unilateral primary osteoarthritis, right knee; M81.0 Age-related osteoporosis without current pathological fracture; Z96.652 Presence of left artificial knee joint
CPT/HCPCS: 81003; 87077; 87086; 87186; 99213; G0463

== ENCOUNTER 2022-10-13 09:33 | Outpatient (CLI) | payer OTHER, SELFPAY ==
[2022-10-13 18:22] LABS: Basophils Absolute Auto 0.1 K/mm3 (0.0-0.1); Basophils Percent Auto 0.9 % (0.2-1.2); Eosinophils Absolute Auto 0.3 K/mm3 (0-0.3); Eosinophils Percent Auto 5.3 % (0-4.4); Hematocrit 39.6 % (37.0-47.0); Hemoglobin 12.2 g/dL (12.0-15.0); Lymphocytes Absolute Auto 1.92 K/mm3 (0.9-3.2); Lymphocytes Percent Auto 35.3 % (18.3-44.2); Mean Corpuscular HGB Conc 30.8 g/dl (32-36); Mean Corpuscular Hemoglobin 29.6 pg (26-34); Mean Corpuscular Volume 96.1 fl (80-100); Mean Platelet Volume 10.6 fl (7.4-10.4); Monocytes Absolute Auto 0.4 K/mm3 (0.1-0.6); Monocytes Percent Auto 7.7 % (2.6-8.5); Neutrophils Absolute Auto 2.8 K/mm3 (1.3-6.7); Neutrophils Percent Auto 50.8 % (45.5-73.1); Platelet Count Result 300 k/mm3 (150-375); Red Blood Count 4.12 M/mm3 (4.2-5.4); Red Cell Distribution Width 13.3 % (11.5-14.5); White Blood Count 5.4 K/mm3 (4.5-10.0)
[2022-10-13 18:51] LABS: Alanine Aminotransferase 21 U/L (6-35); Albumin Level 4.5 g/dL (3.5-5.1); Alkaline Phosphatase 71 U/L (38-126); Anion Gap 6 mmol/L (8-16); Aspartate Amino Transferase 35 U/L (14-36); Bilirubin,Total 0.4 mg/dL (0.2-1.3); Blood Urea Nitrogen 31 mg/dL (7-17); Calcium 9.4 mg/dL (8.4-10.2); Carbon Dioxide 30 mmol/L (22-30); Chloride 106 mmol/L (98-107); Cholesterol 217 mg/dL (0-200); Estimated Glomerular Filt Rate 54; Glucose 76 mg/dL (65-110); HDL Direct 82 mg/dL; Potassium 4.7 mmol/L (3.4-5.0); Sodium 142 mmol/L (137-145); Triglycerides 68 mg/dL (<150)
[2022-10-13 19:02] LABS: LDL Cholesterol Direct 102 mg/dL
== END 2022-10-13 09:34 | disposition home or self-care (01) ==
PROVIDERS: PCP Family Medicine; Visit Provider Nurse Practitioner Family
DX: Z00.00 Encounter for general adult medical examination without abnormal findings (principal); I10 Essential (primary) hypertension; Z13.220 Encounter for screening for lipoid disorders; Z13.29 Encounter for screening for other suspected endocrine disorder
CPT/HCPCS: 36415; 80053; 80061; 84443; 85025

== ENCOUNTER 2022-11-30 13:56 | Outpatient (CLI) | payer OTHER, SELFPAY ==
--- NOTE | 2022-11-30 14:34 | ECHO_ITS ---
Patient Info Name: Katherine Tian Age: 77 years : 1945 Gender: Female Ht: 64 in Wt: 180 lbs BSA: 1.95 m2 HR: 74 bpm BP: 121 / 78 mmHg Technical Quality: Good Exam Date: 11/30/2022 2:40 PM Exam Location: [facility] Patient Status: Outpatient Admit Date: 11/30/2022 Staff Ordering Physician: Danae Schulz APRN Department Director: Agnes Casey RDCS Attending Provider: Evonne Leonard MD Referring Physician: Jazz BRAVO; Exam Type: CA echo doppler color flow Study Info Indications R07.9 - Chest pain, unspecified Complete two-dimensional, color flow and Doppler transthoracic echocardiogram is performed. Summary 1. Complete two-dimensional, color flow and Doppler transthoracic echocardiogram is performed. 2. Left ventricular chamber dimension is normal. 3. Left ventricular systolic function is normal, estimated at 60-65%. 4. The left ventricular diastolic function is grade I diastolic dysfunction. 5. E/e' 11 is mildly elevated. 6. Global longitudinal strain is normal at -21.7%. 7. Left atrial chamber dimension is moderately enlarged. 8. The mitral valve has mildly calcified annulus. 9. There is mild mitral valve regurgitation. 10. There is mild tricuspid valve regurgitation. 11. No pulmonary hypertension, estimated pulmonary arterial systolic pressure is 35 mmHg. 12. There is mild to moderate pulmonic regurgitation. Left Ventricle E/e' 11 is mildly elevated. Global longitudinal strain is normal at -21.7%. Left ventricular chamber dimension is normal. Left ventricular systolic function is normal, estimated at 60-65%. The left ventricular diastolic function is grade I diastolic dysfunction. Right Ventricle Right ventricular chamber dimension is normal. Right ventricular systolic function is normal. Left Atria Left atrial chamber dimension is moderately enlarged. Right Atria Right atrial chamber dimension is normal. Aortic Valve The aortic valve is trileaflet. There is no aortic valve stenosis. There is no aortic valve regurgitation. Pulmonic Valve There is mild to moderate pulmonic regurgitation. Mitral Valve The mitral valve has mildly calcified annulus. There is no mitral valve stenosis. There is mild mitral valve regurgitation. Tricuspid Valve There is mild tricuspid valve regurgitation. No pulmonary hypertension, estimated pulmonary arterial systolic pressure is 35 mmHg. Pericardium/Pleural There is no pericardial effusion. Inferior Vena Cava Normal inferior vena cava with >50% collapse upon inspiration consistent with normal right atrial pressure, 5 mmHg. Aorta The aortic root size at the sinus of Valsalva is normal. Left Ventricular Outflow Tract Name Value Normal LVOT 2D LVOT Diameter 2.0 cm LVOT Doppler LVOT Peak Gradient 4 mmHg LVOT Mean Gradient 2 mmHg LVOT VTI 21 cm LVOT VTI/AV VTI Ratio 0.7 LVOT Stroke Volume 67 ml LVOT CO 12.8 l/min LVOT CI 6.6 l/min/m2 Pulmonic Valve
== END 2022-11-30 13:57 | disposition home or self-care (01) ==
PROVIDERS: PCP Family Medicine; Visit Provider Family Medicine
DX: R07.9 Chest pain, unspecified (principal)
CPT/HCPCS: 93306

== ENCOUNTER 2023-01-13 09:10 | Outpatient (CLI) | payer OTHER, SELFPAY ==
--- NOTE | ~2023-01-13 | NM_ITS ---
EXAMINATION: NM shad stress w perfusion DATE: 01/13/2023 12:45 INDICATION: Chest pain TECHNIQUE: Rest images were obtained following intravenous administration of 10.3 mCi Tc99m tetrofosm in (Myoview). The patient was infused intravenously with Lexiscan (Regadenoson). Then, 32.7 mCi Tc99m tetrofosmin (Myoview) was administered intravenously, and stress images were obtained. Data was jong nstructed into short axis and horizontal and vertical long axis SPECT images. Gated SPECT images were also obtained. COMPARISON: None. FINDINGS: There is no definite reversible or fixed perfusion abnormality to suggest ischemia or infar ction. There is normal left ventricular chamber size, wall motion and ejection fraction. Left ventr icular ejection fraction measures >70%. IMPRESSION: 1. Normal myocardial perfusion at rest and during stress. 2. Left ventricular ejection fraction measuring >70%. Reviewed, dictated and finalized at location A. [place] [employer]
--- NOTE | 2023-01-13 08:32 | EST_ITS ---
Patient Info Name: Katherine Tian Age: 77 years : 1945 Gender: Female Ht: 64 in Wt: 180 lbs BSA: 1.95 m2 HR: 75 bpm BP: 140 / 76 mmHg Heart Rhythm: Sinus Rhythm Exam Date: 01/13/2023 10:21 AM Exam Location: Echo Lab Patient Status: Outpatient Admit Date: 01/13/2023 Staff Ordering Physician: Tim Astorga DO Attending Provider: Tim Astorga DO Exercise Technologist: Nguyen Kelly CT Exercise Physician: Tim Astorga DO Exam Type: CA stress shad w NM Study Info Indications R07.89 - Other chest pain A regadenoson stress test was performed. Summary 1. 1. Negative lexiscan stress test for ischemic ST changes by ECG criteria. 2. 2. Stable hemodynamics throughout the test. 3. 3. Nuclear scan to follow and will be reported separately. Please correlate with it. 4. 4. Patient informed of the above results. Protocol: Lexiscan Stress ECG Details Stage: REST Duration (min): 1 min : 9 sec HR (bpm): 75 SBP (mmHg): 140 DBP (mmHg): 76 Stage: REST Duration (min): 2 min : 23 sec HR (bpm): 71 SBP (mmHg): 140 DBP (mmHg): 76 Stage: REST Duration (min): 7 min : 33 sec HR (bpm): 74 SBP (mmHg): 140 DBP (mmHg): 76 Stage: STAGE 1 Duration (min): 1 min : 0 sec HR (bpm): 102 SBP (mmHg): 140 DBP (mmHg): 74 Stage: RECOVERY Duration (min): 1 min : 0 sec HR (bpm): 107 SBP (mmHg): 140 DBP (mmHg): 74 Stage: RECOVERY Duration (min): 2 min : 0 sec HR (bpm): 89 SBP (mmHg): 140 DBP (mmHg): 74 Stage: RECOVERY Duration (min): 3 min : 0 sec HR (bpm): 83 SBP (mmHg): 131 DBP (mmHg): 67 Stage: RECOVERY Duration (min): 3 min : 39 sec HR (bpm): 85 SBP (mmHg): 131 DBP (mmHg): 67 Rest HR: 74 bpm Peak HR: 112 bpm Rest Sys BP: 140 mmHg Peak Sys BP: 140 mmHg Max Pred HR: 144 bpm % Max Pred HR: 78 % Target HR: 122 bpm Max RPP: 15,680 bpm*mmHg Termination Reason: Completed protocol Cardiac Symptoms: Shortness of breath Total Time: 1 min : 0 sec Rest Johnson BP: 76 mmHg Peak Johnson BP: 74 mmHg Total Dose: 0.4 mg Resting ECG Sinus rhythm. Stress ECG No ST changes. Arrhythmias None. Report Signatures
== END 2023-01-13 09:11 | disposition home or self-care (01) ==
PROVIDERS: PCP Family Medicine; Visit Provider Internal Medicine Cardiovascular Disease
DX: R07.9 Chest pain, unspecified (principal)
CPT/HCPCS: 78452; 93017; A9502; J2785

== ENCOUNTER 2023-04-14 09:52 | Outpatient (CLI) | payer OTHER, SELFPAY ==
[2023-04-14 19:45] LABS: Basophils Percent Auto 0.7 % (0.2-1.2); Eosinophils Absolute Auto 0.3 K/mm3 (0-0.3); Eosinophils Percent Auto 4.9 % (0-4.4); Hemoglobin 12.9 g/dL (12.0-15.0); Immature Granulocyte Absolute 0.01 K/mm3 (0.00-0.031); Immature Granulocyte Percent A 0.2 % (0-0.5); Lymphocytes Absolute Auto 2.06 K/mm3 (0.9-3.2); Lymphocytes Percent Auto 33.7 % (18.3-44.2); Mean Corpuscular HGB Conc 30.7 g/dl (32-36); Mean Corpuscular Hemoglobin 29.5 pg (26-34); Mean Corpuscular Volume 95.9 fl (80-100); Mean Platelet Volume 10.9 fl (7.4-10.4); Monocytes Absolute Auto 0.5 K/mm3 (0.1-0.6); Monocytes Percent Auto 7.4 % (2.6-8.5); Neutrophils Absolute Auto 3.3 K/mm3 (1.3-6.7); Neutrophils Percent Auto 53.1 % (45.5-73.1); Platelet Count Result 294 k/mm3 (150-375); Red Blood Count 4.38 M/mm3 (4.2-5.4); Red Cell Distribution Width 12.6 % (11.5-14.5); White Blood Count 6.1 K/mm3 (4.5-10.0)
[2023-04-14 20:56] LABS: LDL Cholesterol Direct 93 mg/dL
[2023-04-14 21:02] LABS: Vitamin D 25 Hydroxy 46.1 ng/mL
[2023-04-14 22:56] LABS: Alanine Aminotransferase 19 U/L (6-35); Albumin Level 4.2 g/dL (3.5-5.1); Alkaline Phosphatase 73 U/L (38-126); Anion Gap 4 mmol/L (8-16); Aspartate Amino Transferase 47 U/L (14-36); Bilirubin,Total 0.5 mg/dL (0.2-1.3); Blood Urea Nitrogen 26 mg/dL (7-17); Carbon Dioxide 29 mmol/L (22-30); Chloride 106 mmol/L (98-107); Cholesterol 210 mg/dL (0-200); Estimated Glomerular Filt Rate > 60; Glucose 92 mg/dL (65-110); HDL Direct 82 mg/dL; Potassium 4.5 mmol/L (3.4-5.0); Sodium 139 mmol/L (137-145); Triglycerides 76 mg/dL (<150)
== END 2023-04-14 09:53 | disposition home or self-care (01) ==
LOC: ANHGOSHLAB 09:53
PROVIDERS: PCP Family Medicine; Visit Provider Family Medicine
DX: Z00.00 Encounter for general adult medical examination without abnormal findings (principal); E78.5 Hyperlipidemia, unspecified; I10 Essential (primary) hypertension; E55.9 Vitamin D deficiency, unspecified; E53.8 Deficiency of other specified B group vitamins
CPT/HCPCS: 36415; 80053; 80061; 82306; 82607; 84443; 85025

== ENCOUNTER 2023-06-10 11:03 | Outpatient (CLI) | payer OTHER, SELFPAY ==
--- NOTE | ~2023-06-10 | US_ITS ---
EXAMINATION: US abdomen limited DATE: 06/10/2023 11:22 INDICATION: K82.4 - Cholesterolosis of gallbladder TECHNIQUE: Multiple grayscale and Doppler ultrasound images of limited portions of the abdomen were o btained. COMPARISON: Ultrasound abdomen 12/18/2020. FINDINGS: The visualized portions of the pancreas are normal. The liver is normal with normal echogen icity and echotexture. No surface nodularity. Normal hepatopetal flow in the main portal vein. Normal size gallbladder. Normal gallbladder wall. No pericholecystic fluid. 2 nonmobile, nonshadowing, echo genic foci along the gallbladder wall, measuring 5 and 4 mm. The common bile duct measures 6 mm. Ther e was no sonographic [place] sign. The right kidney is normal in appearance, measuring 9.7 cm. IMPRESSION: 5 mm and 4 mm nonmobile gallbladder foci may represent adherent stones, sludge balls, or polyps. Give n the lack of interval change, multiple sub-6 mm polyps are favored, for which no additional evaluati on at follow-up is recommended. Reviewed, dictated and finalized at location K. IMPRESSION: 5 mm and 4 mm nonmobile gallbladder foci may represent adherent stones, sludge balls, or polyps. Given the lack of interval change, multiple sub-6 mm polyps a re favored, for which no additional evaluation at follow-up is recommended.
== END 2023-06-10 11:04 ==
LOC: MICIMG 11:05
PROVIDERS: PCP Family Medicine; Visit Provider Surgery
DX: K82.4 Cholesterolosis of gallbladder (principal)
CPT/HCPCS: 76705

== ENCOUNTER 2023-08-23 13:25 | Outpatient (CLI) | payer OTHER, SELFPAY ==
--- NOTE | ~2023-08-23 | MM_ITS ---
EXAMINATION: MM screening [facility] BI w shashi HISTORY: Screening TECHNIQUE: Craniocaudal and mediolateral oblique 3-D tomosynthesis images were obtained and synthetic 2-D images were generated. CAD analysis was submitted and interpreted. COMPARISON: Comparison to multiple prior studies sequentially, with oldest reviewed study dated 08/28. BREAST PARENCHYMAL COMPOSITION: Not dense: There are scattered areas of fibroglandular density. FINDINGS: There is no evidence of suspicious mass, calcification, or architectural distortion to sugg est malignancy in either breast. There has been no suspicious interval change. IMPRESSION: 1. No mammographic evidence of malignancy. 2. Recommend routine screening mammography in one year. BI-RADS Category 1: Negative Reviewed, dictated and finalized at location B.
== END 2023-08-23 13:26 ==
LOC: MICIMG 13:25
PROVIDERS: PCP Family Medicine; Visit Provider Nurse Practitioner
DX: Z12.31 Encounter for screening mammogram for malignant neoplasm of breast (principal)
CPT/HCPCS: 77063; 77067

== ENCOUNTER 2023-10-12 10:42 | Outpatient (CLI) | payer OTHER, SELFPAY ==
[2023-10-12 13:28] LABS: Alanine Aminotransferase 18 U/L (6-35); Albumin Level 4.4 g/dL (3.5-5.1); Alkaline Phosphatase 77 U/L (38-126); Anion Gap 9 mmol/L (4-12); Aspartate Amino Transferase 50 U/L (14-36); Bilirubin,Total 0.4 mg/dL (0.2-1.3); Blood Urea Nitrogen 22 mg/dL (7-17); Calcium 9.5 mg/dL (8.4-10.2); Carbon Dioxide 30 mmol/L (22-30); Chloride 101 mmol/L (98-107); Estimated Glomerular Filt Rate 54; Glucose 94 mg/dL (65-110); Potassium 4.2 mmol/L (3.4-5.0); Sodium 140 mmol/L (137-145)
== END 2023-10-12 10:43 | disposition home or self-care (01) ==
LOC: ANHGOSHLAB 10:43
PROVIDERS: PCP Family Medicine; Visit Provider Nurse Practitioner Family
DX: R53.83 Other fatigue (principal); I10 Essential (primary) hypertension
CPT/HCPCS: 36415; 80053; 82607

== ENCOUNTER 2023-11-30 08:38 | Outpatient (CLI) | payer OTHER, SELFPAY ==
--- NOTE | ~2023-11-30 | DEXA_ITS ---
Bone Density Report Name: RENNY WRIGHT Age: 78 Sex: Female Ethnicity: White Date of : 1945 Indication: postmenopausal; screening for osteoporosis; parental hip fracture; height loss; hysterectomy; Referring Provider: FILI BAIN Study: Bone densitometry was performed. Exam Date: November 30, 2023 Accession number: [id number] Bone Density: Region BMD T-score Z-score Classification AP Spine(L1-L4) 1.283 2.1 4.7 Normal Femoral Neck (Left) 0.610 -2.2 0.0 Osteopenia Total Hip (Left) 0.702 -2.0 -0.1 Osteopenia Femoral Neck (Right) 0.640 -1.9 0.3 Osteopenia Total Hip (Right) 0.769 -1.4 0.5 Osteopenia Total Hip Mean 0.735 -1.7 0.2 Osteopenia World Health Organization criteria for BMD impression classify patients as: Normal (T-score at or above -1.0), Osteopenia (T-score between -1.0 and -2.5), or Osteoporosis (T-score at or below -2.5). 10-year Fracture Risk(1): Major Osteoporotic Fracture 26% Hip Fracture 16% Reported Risk Factors: [place] (), Neck BMD=0.610, BMI=33.8, parental fracture (1) FRAX(R) Version 3.08. Fracture probability calculated for an untreated patient. Fracture probability may be lower if the patient has received treatment. Clinical Information Provided by Patient: Parent has had a hip fracture Has used the following medications: Vitamin D, Calcium Has the following medical conditions: Hysterectomy Patient maximum height was 65.0 No regular weight bearing exercise Does not regularly consume dairy products Drinks caffeinated beverages Onset of menses at age 14 Number of children 3 Impression: The patient has low bone mass, based on the Left Femoral Neck T-score. The patient has an estimated ten-year risk of hip fracture of 16% and an estimated ten-year risk of major fracture of 26%, based on the WHO FRAX algorithm. The patient has risk factors, including: parental hip fracture. Discussion: BONE DENSITY IS LOW AT ONE OR MORE SKELETAL SITES. THE PATIENT'S BMD AND CLINICAL RISK FACTORS CONTRIBUTE TO THIS PATIENT'S HIGH RISK OF FRACTURE. This patient's lowest T-score is low at one or more skeletal sites. It meets the World Health Organization's (WHO) criteria for ?low bone mass? (T-score between -1.0 and -2.5). The patient's 10-year risk of hip fracture and 10 year risk of a major osteoporotic fracture as calculated by FRAX exceeds the threshold where pharmacological therapy is recommended by the National Osteoporosis Foundation (NOF). However, all treatment decisions require clinical judgment and consideration of individual patient factors, including patient preferences, comorbidities, previous drug use, risk factors not captured in the FRAX model (e.g., frailty, falls, vitamin D deficiency, increased bone turnover, interval significant decline in bone
== END 2023-11-30 08:39 | disposition home or self-care (01) ==
LOC: ANHIMG 08:39
PROVIDERS: PCP Family Medicine; Visit Provider Nurse Practitioner
DX: M85.88 Other specified disorders of bone density and structure, other site (principal); M85.852 Other specified disorders of bone density and structure, left thigh; M85.851 Other specified disorders of bone density and structure, right thigh
CPT/HCPCS: 77080

== ENCOUNTER 2023-12-18 12:28 | Emergency (ER) | payer OTHER, SELFPAY ==
[2023-12-18 12:35] VITALS: BP 125/74; PULSE 81; RESP 16; TEMP 36.8; O2SAT 99
--- NOTE | 2023-12-18 13:05 | ED_ITS ---
HPI - Female Genitourinary General Chief complaint: Urogenital-Female Stated complaint: Uti Symptoms Source: patient and RN notes reviewed Mode of arrival: ambulatory Limitations: no limitations History of Present Illness HPI Narrative: 78-year-old female with a history of UTIs presented for complaint of burning with urination, frequency and urgency. Onset yesterday. States she noted blood in urine today and reports mild lower abdominal pain. Denies nausea, vomiting, flank pain, constipation, diarrhea, fevers or chills. Taking methenamine and follows with urology. Says her last antibiotic was about 5 ago. Related Data Home Medications Medication Instructions Recorded Confirmed calcium carbonate (Calci-Chew) 500 mg PO DAILY 02/12/19 12/18/23 cholecalciferol (vitamin D3) 50 50 mcg PO DAILY 02/25/20 12/18/23 mcg (2,000 unit) capsule ascorbic acid (vitamin C) 500 mg 500 mg PO DAILY 10/05/21 12/18/23 capsule methenamine hippurate 1 gram tablet 1 g PO DAILY 10/12/23 12/18/23 Allergies Allergy/AdvReac Type Severity Reaction Status Date / Time adhesive tape Allergy Severe BLISTERS Verified 12/18/23 12:40 Penicillins Allergy Severe Hives Verified 12/18/23 12:40 sulfamethoxazole Allergy Rash Verified 12/18/23 12:58 [From Bactrim] trimethoprim [From Bactrim] Allergy Rash Verified 12/18/23 12:58 ciprofloxacin [From Cipro] AdvReac Mild itching Verified 12/18/23 12:40 Review of Systems Review of Systems: CONSTITUTIONAL: Denies body aches, fever, chills, or sweats. CARDIOVASCULAR: Denies chest pain, palpitations, or edema. RESPIRATORY: Denies cough or dyspnea. GASTROINTESTINAL: Denies abdominal pain, nausea, vomiting, or diarrhea. GENITOURINARY: Reports dysuria, frequency, urgency, hematuria,denies flank pain SKIN: Denies rash, itching, or wounds. MUSCULOSKELETAL: Denies back pain or myalgia. [facility] Past Medical History Medical History Arthritis of hand, right Chronic GERD Diverticulitis Family history of colonic polyps Gallbladder polyp H/O: HTN (hypertension) Nausea and vomiting Osteopenia Positive colorectal cancer screening using Cologuard test Stage 3a chronic kidney disease (CKD) Surgical History Surgical History Fracture of right distal radius (~07/2019) ORIF History of appendectomy (~1975) History of cataract surgery (~2020) History of hysterectomy 2000 History of knee replacement Left 2013- Dr. Parkinson History of right knee joint replacement (~2015) History of thumb surgery [facility] arthroplasties Left 2005- Right 2007- History of tonsillectomy 1972 Left femoral shaft fracture (~2013) ORIF Family History Family History Mother Family history of diabetes mellitus in first degree relative Diabetes mellitus Hypertension Hepatitis C Father Hypertension Sibling Family history of malignant neoplasm of brain Other Cerebrovascular accident Family history of malignant neoplasm Social History Social History Smoking status: Never smoker Second hand tobacco smoke exposure: No Alcohol intake: never Substance use: never Substance use type: does not use Lack of Food: Never True Current Housing: I Have Housing Concerned About Future Housing: No Difficulty Paying Gas/Electric Bills: No Difficulty Paying for Meds: No Currently Unemployed: No Education: High School Diploma/GED Difficulty w/ Childcare or Family Care: No Living arrangements: with family Additional living arrangements comments: Occupation/Education: retired Gender identity (if verbalized by the patient): Female Sexual Orientation (if Verbalized by the Patient): Straight or Heterosexual Spiritual care concerns: No Agree to blood products: Yes Comments At time of signature, I have reviewed and agree with nursing past medical, surgical, social and family history unless otherwise noted. Please see nursing chart for further information. There is no relevant family history pertinent to the presenting complaint Exam Narrative: GENERAL: Well-appearing ENT: Mucous membranes pink and moist. CHEST: No respiratory distress. Clear to auscultation. HEART: Regular rate and rhythm. ABDOMEN: Soft, nontender, nondistended, normal active bowel sounds. No CVA tenderness SKIN: Warm, dry, no rash. NEURO: No focal deficits. Alert and oriented x3. Gait steady. PSYCH: Normal affect. Course Course Emergency Course: Patient is aware of diagnosis, understands and agrees to treatment plan. Anticipatory guidance given. Patient agrees to follow-up as directed and is aware of reasons to seek care at the emergency department. Portions of this record may have been created with voice recognition software Level of Care: Express Care Visit Vital Signs Vital signs: Vital Signs Temperature 98.3 F 12/18/23 12:35 Pulse Rate 81 12/18/23 12:35 Respiratory Rate 16 12/18/23 12:35 Blood Pressure 125/74 12/18/23 12:35 Pulse Oximetry 99 12/18/23 12:35 Temperature 98.3 F 12/18/23 12:35 Pulse Rate 81 12/18/23 12:35 Respiratory Rate 16 12/18/23 12:35 Blood Pressure 125/74 12/18/23 12:35 Pulse Oximetry 99 12/18/23 12:35 Reviewed MDM - Female Genitourinary MDM Narrative Medical decision making narrative: Discussed physical exam findings. Reviewed prescription. Will culture urine. Advised supportive measures and signs/symptoms to go to the ER. Pt is appropriate for outpt treatment and f/u. Differential Diagnosis Differential diagnosis: Likely urinary tract infection, vaginitis, cystitis and other Discharge Plan Discharge Clinical Impression: Urinary tract infection Patient Disposition: Home, Self-Care Condition: Stable Instructions: Antibiotic Form, Urinary Tract Infection in Older Adults (ED) Additional Instructions: Take the antibiotic as prescribed The urine will be sent of for a culture to identify what type of bacteria is causing your infection. If the culture shows that the antibiotic will not get rid of your infection, you will be notified and a new antibiotic will be called in for you. Increase water intake you will need to follow up with your PCP and urologist this week, call to schedule an appointment. Go to the ER for any worsening symptoms or concerns Prescriptions: New nitrofurantoin monohyd/m-cryst [Macrobid] 100 mg capsule 100 mg PO Q12H 5 Days Qty: 10 0RF Rx Instructions: must administer with a meal/food No Action cholecalciferol (vitamin D3) 50 mcg (2,000 unit) capsule 50 mcg PO DAILY ascorbic acid (vitamin C) 500 mg capsule 500 mg PO DAILY methenamine hippurate 1 gram tablet 1 g PO DAILY lisinopril 2.5 mg tablet 2.5 mg PO DAILY Qty: 90 1RF aspirin 81 mg tablet,delayed release (DR/EC) 81 mg PO DAILY Qty: 90 1RF calcium carbonate [Calci-Chew] 500 mg calcium (1,250 mg) tablet,chewable 500 mg PO DAILY diclofenac sodium 1 % gel See Rx Instructions .ROUTE .COMPLEX Qty: 100 0RF Dose Instruction: USE 2 GRAMS FOUR TIMES DAILY TO BILATERAL HANDS NEEDED FOR PAIN Rx Instructions: USE 2 GRAMS FOUR TIMES DAILY TO BILATERAL HANDS NEEDED FOR PAIN docusate sodium 100 mg capsule 100 mg PO DAILY Qty: 90 1RF omeprazole 20 mg capsule,delayed release(DR/EC) 20 mg PO DAILY Qty: 90 1RF Follow-up/Referrals: Evonne Leonard MD [Primary Care Provider] - Time of Disposition: 13:11
[2023-12-18 13:32] LABS: EDUAAPPEAR Sediment; EDUABILI Negative (Negative); EDUABLOOD 3+ (Negative); EDUACOLOR1 Yellow; EDUAGLUCOSE Negative (Negative); EDUAKETONE Negative (Negative); EDUALEUKO 2+ (Negative); EDUANITRATE Negative (Negative); EDUAPROTEIN 3+ (Negative); EDUASPGRAVITY 1.025; EDUAUROBILI 0.2
== END 2023-12-18 13:15 | disposition home or self-care (01) ==
PROVIDERS: Emergency Provider Nurse Practitioner Family; PCP Family Medicine
DX: N39.0 Urinary tract infection, site not specified (principal); K21.9 Gastro-esophageal reflux disease without esophagitis; I12.9 Hypertensive chronic kidney disease with stage 1 through stage 4 chronic kidney disease, or unspecified chronic kidney disease; N18.31 Chronic kidney disease, stage 3a; M85.80 Other specified disorders of bone density and structure, unspecified site; M19.041 Primary osteoarthritis, right hand; Z96.653 Presence of artificial knee joint, bilateral
CPT/HCPCS: 81003; 87086; 99213; G0463

== ENCOUNTER 2024-05-03 09:46 | Emergency (ER) | payer OTHER, SELFPAY ==
[2024-05-03 10:01] VITALS: BP 158/84; PULSE 77; RESP 16; TEMP 36.6; O2SAT 100
--- NOTE | 2024-05-03 10:17 | ED.FEMALEGU ---
HPI - Female Genitourinary General Chief complaint: Urogenital-Female Stated complaint: UTI SYMPTOMS Time Seen by Provider: 05/03/24 10:15 Source: patient, family, RN notes reviewed and old records reviewed Mode of arrival: ambulatory Limitations: no limitations History of Present Illness HPI Narrative: 78 year old female [facility] with complaints of frequency urgency and burning and pain with urination for the past 1 week duration. Patient reports that 2 days ago she had some chills and fatigue. Patient reports that he has history of urinary tract infections and has seen urology in the past. Patient reports that she has increased her fluids and has drank cranberry juice for her symptoms, no known fevers. MD elicited complaint: UTI Pertinent past history: recurrent UTIs Onset (ago): week(s) (1) Location of symptoms: suprapubic and urethra Severity: moderate Severity scale (1-10): 5 Quality of pain: burning and other (soreness ) Consistency: constant Vaginal discharge: none Vaginal bleeding: none Treatment prior to arrival: other (increased fluida and has drank cranberry juice) Related Data Home Medications ?Medication ?Instructions ?Recorded ?Confirmed ?Last Taken ?Type calcium carbonate (Calci-Chew) 500 mg PO DAILY 02/12/19 05/03/24 07/05/19 History cholecalciferol (vitamin D3) 50 50 mcg PO DAILY 02/25/20 05/03/24 Unknown History mcg (2,000 unit) capsule ascorbic acid (vitamin C) 500 mg 500 mg PO DAILY 10/05/21 05/03/24 Unknown History capsule Allergies Allergy/AdvReac Type Severity Reaction Status Date / Time adhesive tape Allergy Severe BLISTERS Verified 05/03/24 09:57 Penicillins Allergy Severe Hives Verified 05/03/24 09:57 sulfamethoxazole (From Allergy Rash Verified 05/03/24 09:57 Bactrim) trimethoprim (From Bactrim) Allergy Rash Verified 05/03/24 09:57 ciprofloxacin (From Cipro) AdvReac Mild itching Verified 05/03/24 09:57 Review of Systems Review of Systems: CONSTITUTIONAL: Denies fever, positive for chills, or sweats.fatigue CARDIOVASCULAR: Denies chest pain, palpitations, or edema. RESPIRATORY: Denies cough or dyspnea. GASTROINTESTINAL: suprapubic abdominal pain,no nausea, vomiting, or diarrhea. GENITOURINARY: Reports dysuria, frequency, urgency. Denies flank pain or hematuria.positive for suprapubic pain SKIN: Denies rash or itching. MUSCULOSKELETAL: Denies back pain or myalgia. Denies CVA tenderness NEUROLOGIC: Denies headache All systems reviewed & are unremarkable except as noted in HPI and below PMFSH Past Medical History Medical History Osteopenia Stage 3a chronic kidney disease (CKD) Nausea and vomiting Family history of colonic polyps Positive colorectal cancer screening using Cologuard test Gallbladder polyp Chronic GERD Diverticulitis H/O: HTN (hypertension) Arthritis of hand, right Surgical History Surgical History History of right knee joint replacement (~2015) Left femoral shaft fracture (~2013) ORIF Fracture of right distal radius (~07/2019) ORIF History of cataract surgery (~2020) History of appendectomy (~1975) History of tonsillectomy 1972 History of hysterectomy 2000 History of knee replacement Left 2014- Dr. Parkinson History of thumb surgery [facility] arthroplasties Left 2006- Right 2007- Family History Family History Mother Family history of diabetes mellitus in first degree relative Diabetes mellitus Hypertension Hepatitis C Father Hypertension Sibling Family history of malignant neoplasm of brain Other Cerebrovascular accident Family history of malignant neoplasm Social History Social History Smoking status: Never smoker Second hand tobacco smoke exposure: No Alcohol intake: never Substance use: never Substance use type: does not use Lack of Food: Never True Current Housing: I Have Housing Concerned About Future Housing: No Difficulty Paying Gas/Electric Bills: No Difficulty Paying for Meds: No Currently Unemployed: No Education: High School Diploma/GED Difficulty w/ Childcare or Family Care: No Living arrangements: with family Additional living arrangements comments: Occupation/Education: retired Gender identity (if verbalized by the patient): Female Sexual Orientation (if Verbalized by the Patient): Straight or Heterosexual Spiritual care concerns: No Agree to blood products: Yes Comments At time of signature, agree with nursing past medical, surgical, social and family history. There is no relevant family history pertinent to the presenting complaint Exam Narrative: GENERAL: Well-appearing, well-nourished, and in no acute distress. HEAD: Normocephalic, atraumatic. NECK: Supple.no lymphadenopathy CHEST: Clear to auscultation. No respiratory distress.SAO2 100% on room air HEART: Regular rate and rhythm. No murmur heard. Normal peripheral pulses. ABDOMEN: Soft, tender suprapubic area, nondistended, normal active bowel sounds. No CVA tenderness reports urethra burning and pain with urination EXTREMITIES: Normal range of motion. No edema. SKIN: Warm, dry, no rash. NEURO: No focal deficits. Alert and oriented x3. Course Course Emergency Course: Patient is aware of diagnosis, understands and agrees to treatment plan.? Anticipatory guidance given.? Patient agrees to follow-up as directed and is aware of reasons to seek care at the emergency department. Portions of this record may have been created with voice recognition software Level of Care: Express Care Visit Vital Signs Vital signs: Vital Signs Temperature 36.6 C 05/03/24 10:01 Pulse Rate 77 05/03/24 10:01 Respiratory Rate 16 05/03/24 10:01 Blood Pressure 158/84 H 05/03/24 10:01 Pulse Oximetry 100 05/03/24 10:01 Temperature 36.6 C 05/03/24 10:01 Pulse Rate 77 05/03/24 10:01 Respiratory Rate 16 05/03/24 10:01 Blood Pressure 158/84 H 05/03/24 10:01 Pulse Oximetry 100 05/03/24 10:01 MDM - Female Genitourinary MDM Narrative Medical decision making narrative: Exam findings and UA show no acute concerns or changes; patient is non-toxic appearing and is in no distress.? Patient is appropriate for outpatient treatment and follow-up. Differential Diagnosis Differential diagnosis: Likely urinary tract infection and cystitis Medical Records Attestation: I reviewed the patient's medical records. Lab Data Attestation: I reviewed the patient's lab results. Lab results narrative: see urine dip trace blood, 3+ leukocytes Labs: Lab Results 05/03/24 Range/Units 10:39 POC Urine Color Yellow POC Urine Clarity Clear POC Urine pH 6.0 POC Ur Specif Munger 1.005 POC Urine Protein Negative (Negative) POC Ur Glucose (UA) Negative (Negative) POC Urine Ketones Negative (Negative) POC Urine Blood Trace (Negative) POC Urine Nitrite Negative (Negative) POC Urine Bilirubin Negative (Negative) POC Urine Urobilinogen 0.2 POC U Leukocyte Esteras 3+ (Negative) reviewed Critical Care Time Critical Care Time Critical Care Time: No Discharge Plan Discharge Clinical Impression: Urinary tract infection Qualifiers: Urinary tract infection type: site unspecified Hematuria presence: with hematuria Qualified Code(s): N39.0 - Urinary tract infection, site not specified; R31.9 - Hematuria, unspecified Patient Disposition: Home, Self-Care Condition: Stable Instructions: Antibiotic Form, Urinary Tract Infection in Women (ED) Additional Instructions: Increase fluids especially cranberry juice and water Avoid caffeine and carbonated beverages Antibiotic as directed Medicine as directed--cautioned it will cause your urine to be bright orange Tylenol/ibuprofen for pain or fever Follow-up with her primary care provider if further problems or concerns Recheck if you have fever over 101, nausea and vomiting. If your symptoms persist, change or worsen significantly before you can contact your personal physician then please, without delay, go to the emergency department for further evaluation. Follow-up with PCP in 7-10 days or sooner if needed Follow up with PCP soon in regards to your blood pressure which is elevated above threshold for referral. Blood pressure above 120/80 may indicate pre-hypertension.158/84 Patient Language: Korean Prescriptions: New nitrofurantoin monohyd/m-cryst [Macrobid] 100 mg capsule 100 mg PO Q12H 7 Days Qty: 14 0RF Rx Instructions: must administer with a meal/food phenazopyridine [Pyridium] 200 mg tablet 200 mg PO TID PRN (Reason: pain) Qty: 6 0RF No Action cholecalciferol (vitamin D3) 50 mcg (2,000 unit) capsule 50 mcg PO DAILY ascorbic acid (vitamin C) 500 mg capsule 500 mg PO DAILY calcium carbonate [Calci-Chew] 500 mg calcium (1,250 mg) tablet,chewable 500 mg PO DAILY diclofenac sodium 1 % gel See Rx Instructions .ROUTE .COMPLEX Qty: 100 0RF Dose Instruction: USE 2 GRAMS FOUR TIMES DAILY TO BILATERAL HANDS NEEDED FOR PAIN Rx Instructions: USE 2 GRAMS FOUR TIMES DAILY TO BILATERAL HANDS NEEDED FOR PAIN omeprazole 20 mg capsule,delayed release(DR/EC) 20 mg PO DAILY Qty: 90 1RF lisinopril 2.5 mg tablet 2.5 mg PO DAILY Qty: 90 1RF aspirin 81 mg tablet,delayed release (DR/EC) 81 mg PO DAILY Qty: 90 1RF docusate sodium 100 mg capsule 100 mg PO DAILY Qty: 90 1RF Follow-up/Referrals: Evonne Leonard MD [Primary Care Provider] - Time of Disposition: 10:33 Quality Rhett Coma Scale Eyes: Open Verbal: Oriented and Alert Motor: Follows Commands Rhett Coma Total Score: 15
[2024-05-03 10:42] LABS: EDUAAPPEAR Clear; EDUABILI Negative (Negative); EDUABLOOD Trace (Negative); EDUACOLOR1 Yellow; EDUAGLUCOSE Negative (Negative); EDUAKETONE Negative (Negative); EDUALEUKO 3+ (Negative); EDUANITRATE Negative (Negative); EDUAPROTEIN Negative (Negative); EDUASPGRAVITY 1.005; EDUAUROBILI 0.2
== END 2024-05-03 10:48 | disposition home or self-care (01) ==
PROVIDERS: Emergency Provider Registered Nurse; PCP Family Medicine
DX: N39.0 Urinary tract infection, site not specified (principal); B96.1 Klebsiella pneumoniae [K. pneumoniae] as the cause of diseases classified elsewhere; B95.1 Streptococcus, group B, as the cause of diseases classified elsewhere; R31.9 Hematuria, unspecified; I12.9 Hypertensive chronic kidney disease with stage 1 through stage 4 chronic kidney disease, or unspecified chronic kidney disease; N18.31 Chronic kidney disease, stage 3a; K21.9 Gastro-esophageal reflux disease without esophagitis; M19.041 Primary osteoarthritis, right hand; M85.80 Other specified disorders of bone density and structure, unspecified site; Z96.653 Presence of artificial knee joint, bilateral
CPT/HCPCS: 81003; 87086; 99213; G0463

== ENCOUNTER 2024-07-10 08:44 | Outpatient (CLI) | payer OTHER, SELFPAY ==
--- NOTE | ~2024-07-10 | XR_ITS ---
Clinical Indication: Cough PA and lateral views of the chest: Comparison: 10/30/2013 Findings: There is probable linear left basilar scarring and calcified left basilar granuloma. Right lung clear. Cardiomediastinal silhouette is within normal limits. Bones and soft tissues are unremar kable. Impression: No acute abnormality. Linear left basilar scarring and calcified left basilar granuloma. Reviewed, dictated and finalized at location . Impression: No acute abnormality. Linear left basilar scarring and calcified left basilar g ranuloma.
== END 2024-07-10 08:45 | disposition home or self-care (01) ==
LOC: GOSHIMG 08:44
PROVIDERS: PCP Family Medicine; Visit Provider Nurse Practitioner Family
DX: R05.9 Cough, unspecified (principal)
CPT/HCPCS: 71046

== ENCOUNTER 2024-10-29 08:50 | Outpatient (CLI) | payer OTHER, SELFPAY ==
[2024-10-29 14:38] LABS: Hematocrit 40.9 % (37.0-47.0); Hemoglobin 12.6 g/dL (12.0-15.0); Mean Corpuscular HGB Conc 30.8 g/dl (32-36); Mean Corpuscular Hemoglobin 29.2 pg (26-34); Mean Corpuscular Volume 94.7 fl (80-100); Platelet Count Result 304 k/mm3 (150-375); Red Blood Count 4.32 M/mm3 (4.2-5.4); White Blood Count 4.9 K/mm3 (4.5-10.0)
[2024-10-29 15:21] LABS: Alanine Aminotransferase 19 U/L (6-35); Albumin Level 4.3 g/dL (3.5-5.1); Alkaline Phosphatase 76 U/L (38-126); Anion Gap 8 mmol/L (4-12); Aspartate Amino Transferase 57 U/L (14-36); Bilirubin,Total 0.5 mg/dL (0.2-1.3); Blood Urea Nitrogen 30 mg/dL (7-17); Calcium 9.5 mg/dL (8.4-10.2); Carbon Dioxide 28 mmol/L (22-30); Chloride 105 mmol/L (98-107); Cholesterol 219 mg/dL (0-200); Estimated Glomerular Filt Rate 55; Glucose 94 mg/dL (65-110); HDL Direct 77 mg/dL; Potassium 4.3 mmol/L (3.4-5.0); Sodium 141 mmol/L (137-145); Total Protein 7.2 g/dL (6.3-8.2); Triglycerides 72 mg/dL (<150)
[2024-10-29 15:57] LABS: Thyroid Stimulating Hormone 2.780 uIU/mL (0.465-4.680)
== END 2024-10-29 08:51 | disposition home or self-care (01) ==
LOC: ANHGOSHLAB 08:51
PROVIDERS: PCP Family Medicine; Visit Provider Family Medicine
DX: E78.5 Hyperlipidemia, unspecified (principal); Z79.899 Other long term (current) drug therapy; E55.9 Vitamin D deficiency, unspecified; I12.9 Hypertensive chronic kidney disease with stage 1 through stage 4 chronic kidney disease, or unspecified chronic kidney disease; N18.31 Chronic kidney disease, stage 3a
CPT/HCPCS: 36415; 80053; 80061; 84443; 85027